=== PATIENT | male | born 1960 | race Caucasian/White ===

== ENCOUNTER 2018-03-09 09:47 | Emergency (ER) | payer OTHER ==
[~2018-03-09] VITALS: Ht 172.7 cm; Wt 124.3 kg
[2018-03-09] MEDS ORDERED: LIDODERM 5% P1 PATCH TD (10:31)
[2018-03-09] MEDS ORDERED: MOTRIN800 MG PO (10:31)
[2018-03-09] MEDS ORDERED: FLEXERIL10 MG PO (10:31)
[2018-03-09 10:40] VITALS: BP 166/97
== END 2018-03-09 10:42 | disposition home or self-care (01) ==
LOC: EME 09:47
DX: S39.012A Strain of muscle, fascia and tendon of lower back, initial encounter (principal); S29.011A Strain of muscle and tendon of front wall of thorax, initial encounter; M62.838 Other muscle spasm; X50.1XXA Overexertion from prolonged static or awkward postures, initial encounter; F41.9 Anxiety disorder, unspecified; I10 Essential (primary) hypertension
CPT/HCPCS: 99281; 99283; J1885

== ENCOUNTER 2018-05-10 22:20 | Emergency (ER) | payer OTHER ==
[~2018-05-10] VITALS: Ht 175.3 cm; Wt 128.6 kg
[~2018-05-10 22:20] MED LIST: FLEXERIL10 MG PO; LIDODERM 5% P1 PATCH TD; MOTRIN800 MG PO
[2018-05-10 23:55] LABS: HEMATOCRIT 41.6 % (38.0-50.0); HEMOGLOBIN 15.4 G/DL (12.5-16.6); MCH 32.5 PG (29.0-34.0); MCV 87.8 FL (86-99); PLATELET COUNT 204 K/uL (156-360); RBC DIS.WIDTH-CV 12.3 % (11.8-14.6); RBC DIS.WIDTH-SD 39.6 % (39-53); RED BLOOD COUNT 4.74 M/uL (4.00-5.50); WHITE BLOOD COUNT 10.3 K/uL (4.1-10.2)
[2018-05-11 00:07] LABS: PTT 32.5 SEC (25-37)
[2018-05-11 00:08] LABS: CHLORIDE 105 mEq/L (99-109); POTASSIUM 3.5 mEq/L (3.7-5.4); SODIUM 139 mEq/L (136-147)
[2018-05-11 00:09] LABS: MAGNESIUM 2.3 mg/dL (1.3-2.7)
[2018-05-11 00:10] LABS: GLUCOSE 186 mg/dL (70-99)
[2018-05-11 00:14] LABS: CREATININE 1.2 mg/dL (0.6-1.3); GFR ESTIMATE (CALCULATED) > 59 mL/min/ (58.99-99999); UREA NITROGEN (BUN) 19 mg/dL (9-23)
[2018-05-11 00:16] LABS: CREATINE KINASE 134 IU/L (1-294); TOTAL CK 134 IU/L (1-294)
[2018-05-11 00:24] LABS: CK-MB 2.8 ng/mL (0.0-4.9); CKMB RELATIVE INDEX 2.1 (0.0-3.9)
[2018-05-11] MEDS ORDERED: NORCO 5/3251 TABLET PO (01:48)
[2018-05-11 02:26] VITALS: BP 136/88
[2018-05-12] MEDS ORDERED: MEDROL DOSEPAK4 MG PO (23:26)
[2018-05-12] MEDS ORDERED: PERCOCET 5/31 TABLET PO (23:26)
== END 2018-05-11 02:33 | disposition home or self-care (01) ==
LOC: EME 22:20
PROVIDERS: Emergency Medicine
DX: M79.604 Pain in right leg (principal); M79.89 Other specified soft tissue disorders; R73.9 Hyperglycemia, unspecified; I10 Essential (primary) hypertension; F41.9 Anxiety disorder, unspecified
CPT/HCPCS: 80048; 82550; 82553; 83735; 85027; 85610; 85730; 93971; 99281; 99284

== ENCOUNTER 2018-05-12 22:01 | Emergency (ER) | payer OTHER ==
[~2018-05-12] VITALS: Ht 175.3 cm; Wt 128.8 kg
[~2018-05-12 22:01] MED LIST changes: +NORCO 5/3251 TABLET PO
[2018-05-12] MEDS ORDERED: PERCOCET 5/31 TABLET PO (23:26)
[2018-05-12] MEDS ORDERED: MEDROL DOSEPAK4 MG PO (23:26)
[2018-05-12 23:55] VITALS: BP 166/105
== END 2018-05-12 23:55 | disposition home or self-care (01) ==
LOC: EME 22:01 → EXP 22:01
DX: M25.561 Pain in right knee (principal); M17.11 Unilateral primary osteoarthritis, right knee; I10 Essential (primary) hypertension; F41.9 Anxiety disorder, unspecified; Z91.14 Patient's other noncompliance with medication regimen
CPT/HCPCS: 73564; 99281; 99284; J7512